=== PATIENT | male | born 1965 | race African-American/Black ===

== ENCOUNTER 2016-11-09 12:38 | Emergency (ER) | payer MEDICAID, OTHER ==
[~2016-11-09] VITALS: Ht 180.3 cm; Wt 108.9 kg
--- NOTE | 2016-11-09 12:40 | NUR ---
pt ambulatory to er bed 12. c/o auditory hallucination. c/o si plan is to overdose. hearing demonic voices. telling him to drink. pt is aao, verbally responsive. awaiting md murphy.
--- NOTE | 2016-11-09 13:06 | NUR ---
gloria whiting can worker at bedside for eval.
[2016-11-09 13:26] LABS: BASOPHILS # (AUTO) 0.1 /CMM (0.0-0.2); BASOPHILS % (AUTO) 1.9 % (0.0-2.0); EOSINOPHILS # (AUTO) 0.2 /CMM (0.0-0.7); EOSINOPHILS % (AUTO) 2.3 % (0.0-6.0); HEMATOCRIT 46 % (39-51); HEMOGLOBIN 14.6 g/dL (13.5-17.5); LYMPHOCYTES # (AUTO) 2.3 /CMM (0.8-4.8); LYMPHOCYTES % (AUTO) 29.4 % (20.0-44.0); MEAN CORPUSCULAR HEMOGLOBIN 26 PG (26.0-33.0); MEAN CORPUSCULAR HGB CONC 32 g/dl (31.0-36.0); MEAN CORPUSCULAR VOLUME 83 fL (80-96); MONOCYTES # (AUTO) 0.9 /CMM (0.1-1.30); MONOCYTES % (AUTO) 11.9 % (2.0-12.0); NEUTROPHILS # (AUTO) 4.3 /CMM (1.8-8.9); NEUTROPHILS % (AUTO) 54.5 % (43.0-81.0); PLATELET COUNT (AUTO) 205 /CMM (150-450); RDW COEFFICIENT OF VARIATION 13.2 (11.5-15.0); RED BLOOD CELL COUNT(AUTO) 5.57 MIL/uL (4.5-6.0); WHITE BLOOD COUNT (AUTO) 7.8 K/uL (4.3-11.0)
[2016-11-09] MEDS ORDERED: OLANZAPINE 5 MG TABLET ONE (13:30)
[2016-11-09] MEDS ORDERED: OLANZAPINE 5 MG TABLET PO ONE (13:30)
[2016-11-09 13:35] LABS: CARBON DIOXIDE 26 mmol/L (21-32); CHLORIDE 109 mmol/L (98-107); CREATININE 1.3 mg/dL (0.6-1.3); GLUCOSE 86 mg/dL (74-106); POTASSIUM 4.4 mmol/L (3.5-5.1); SODIUM SERUM 145 mmol/L (136-145); UREA NITROGEN, BLOOD 16 mg/dL (7-18)
[2016-11-09 13:39] LABS: APPEARANCE,URINE Clear (CLEAR); BILIRUBIN,URINE SMALL (NEGATIVE); BLOOD, URINE Negative Ery/uL (NEGATIVE); COLOR,URINE Yellow (YELLOW); KETONES,URINE Trace (NEGATIVE); LEUKOCYTE ESTERASE ,URINE Negative (NEGATIVE); NITRITE, URINE Negative (NEGATIVE); PH,URINE 5.5 (5.0-8.0); PROTEIN,URINE 30 mg/dl (NEGATIVE); UGLUCOSE Negative (NEGATIVE); UROBILINOGEN,URINE 0.2 EU/dL (0.2)
[2016-11-09 13:51] LABS: ALANINE AMINOTRANSFERASE 41 U/L (12-78); ALBUMIN 3.9 g/dL (3.4-5.0); ALCOHOL, BLOOD < 3 mg/dL (0-0); ALKALINE PHOSPHATASE 105 U/L (46-116); ASPARTATE AMINOTRANSFERASE 32 U/L (15-37); BILIRUBIN,DIRECT 0.1 mg/dL (0.0-0.2); BILIRUBIN,TOTAL 0.3 mg/dL (0.2-1.0); TOTAL PROTEIN, SERUM 7.3 g/dL (6.4-8.2)
[2016-11-09 13:52] LABS: ACETAMINOPHEN 0 ug/ml (10-30); SALICYLATE 1.9 mg/dL (2.8-20.0)
[2016-11-09 13:56] LABS: BACTERIA,URINE Rare /HPF (None Seen); RBC,URINE 0-2 /HPF (0-2); SQUAMOUS EPITHELIAL CELL,UR Few /HPF (None Seen); WBC,URINE 0-2 /HPF (0-3)
--- NOTE | 2016-11-09 15:18 | NUR ---
la rn at bedside for psych eval.
[2016-11-09 20:50] VITALS: BP 142/76
--- NOTE | 2016-11-09 21:03 | NUR ---
report given to nima. pt awaiting transfer..
--- NOTE | 2016-11-09 21:06 | NUR ---
DR BAUER ACCEPTING PSYCHIATRIST
--- NOTE | 2016-11-09 21:09 | NUR ---
CALLED [facility] FOR BLS TRANSPORT BACK TO [facility]. ETA 30 MINUTES
== END 2016-11-09 21:40 ==
LOC: ER 12:45
DX: F29 Unspecified psychosis not due to a substance or known physiological condition (principal); R45.851 Suicidal ideations; F31.9 Bipolar disorder, unspecified; F20.9 Schizophrenia, unspecified; Z59.0 Homelessness
CPT/HCPCS: 36415; 80048-TC; 80076-TC; 80305; 81000-TC; 85025-TC; A4606; G0480; Z7610

== ENCOUNTER 2019-06-10 01:33 | Emergency (ER) | payer MEDICAID ==
[~2019-06-10] VITALS: Ht 180.3 cm; Wt 110.2 kg
--- NOTE | 2019-06-10 02:17 | NUR ---
BIBS. TO ER BED 15. AAOX4. NO RESP DISTRESS NOTED, BREATHING EVEN AND UNLABORED. AMBULATORY. CAME IN FOR SUICIDAL IDEATION W/ PLAN TO OVERDOSE WITH MEDS. PT STATES THAT HE HAS BEEN FEELING DEPRESSED. DENIES HI . DENIES HALLUCINATIONS. PT STRIPPED OFF CLOTHINGS AND BELONGINGS AND KEOT IN LOCKER LOCATED IN UTILITY ROOM. PT GOWN AND VISUALLY INSPECTED BODY FOR CONTRABANDS. MD WAS AT BEDSIDE FOR EVAL. 1:1 SITTER AT BEDSIDE.
[2019-06-10 02:18] LABS: BASOPHILS % (AUTO) 0.5 % (0.0-2.0); HEMATOCRIT 43 % (39-51); LYMPHOCYTES # (AUTO) 2.2 /CMM (0.8-4.8); LYMPHOCYTES % (AUTO) 30.9 % (20.0-44.0); MEAN CORPUSCULAR HGB CONC 33 g/dl (31.0-36.0); MEAN CORPUSCULAR VOLUME 82 fL (80-96); MONOCYTES # (AUTO) 0.9 /CMM (0.1-1.30); NEUTROPHILS # (AUTO) 3.9 /CMM (1.8-8.9); NEUTROPHILS % (AUTO) 53.6 % (43.0-81.0); PLATELET COUNT (AUTO) 220 /CMM (150-450); RED BLOOD CELL COUNT(AUTO) 5.26 MIL/uL (4.5-6.0); WHITE BLOOD COUNT (AUTO) 7.2 K/uL (4.3-11.0)
[2019-06-10 02:23] LABS: APPEARANCE,URINE CLEAR (CLEAR); BILIRUBIN,URINE SMALL (NEGATIVE); BLOOD, URINE NEGATIVE Ery/uL (NEGATIVE); COLOR,URINE YELLOW (YELLOW); KETONES,URINE NEGATIVE (NEGATIVE); LEUKOCYTE ESTERASE ,URINE NEGATIVE (NEGATIVE); NITRITE, URINE POSITIVE (NEGATIVE); PROTEIN,URINE TRACE mg/dl (NEGATIVE); UGLUCOSE NEGATIVE (NEGATIVE); UROBILINOGEN,URINE 0.2 EU/dL (0.2)
[2019-06-10 02:54] LABS: BACTERIA,URINE Few /HPF (None Seen); MUCUS,URINE Moderate /LPF (None Seen); SQUAMOUS EPITHELIAL CELL,UR Rare /HPF (None Seen)
[2019-06-10 03:03] LABS: CARBON DIOXIDE 29 mmol/L (21-32); CHLORIDE 101 mmol/L (98-107); GLUCOSE 87 mg/dL (74-106); POTASSIUM 3.4 mmol/L (3.5-5.1); SODIUM SERUM 141 mmol/L (136-145); UREA NITROGEN, BLOOD 19 mg/dL (7-18)
[2019-06-10 03:04] LABS: ACETAMINOPHEN 0 ug/ml (10-30); ALANINE AMINOTRANSFERASE 40 U/L (12-78); ALBUMIN 4.1 g/dL (3.4-5.0); ALKALINE PHOSPHATASE 100 U/L (46-116); ASPARTATE AMINOTRANSFERASE 32 U/L (15-37); BILIRUBIN,DIRECT 0.1 mg/dL (0.0-0.2); BILIRUBIN,TOTAL 0.4 mg/dL (0.2-1.0); CREATININE 1.4 mg/dL (0.6-1.3); TOTAL PROTEIN, SERUM 7.7 g/dL (6.4-8.2)
[2019-06-10 03:30] LABS: ALCOHOL, BLOOD < 3 mg/dL (0-0); SALICYLATE 2.7 mg/dL (2.8-20.0)
--- NOTE | 2019-06-10 06:15 | NUR ---
PT IN BED SLEEPING. NAD NOTED
--- NOTE | 2019-06-10 06:32 | NUR ---
PT ACCEPTED AT [facility] ACCEPTING MD ROSALES PHONE # FOR REPORT EXT [phone] ROOM NUMBER WILL BE PROVIDED DURING NURSE TO NURSE REPORT.
--- NOTE | 2019-06-10 06:41 | NUR ---
SPOKE W/ FILI FROM [facility]: ETA: [phone] TRIP #: [id number]
--- NOTE | 2019-06-10 06:45 | NUR ---
NEW ETA FOR TRANSPORT [phone]
--- NOTE | 2019-06-10 06:49 | NUR ---
CALLED [facility] FOR REPORT BUT UNABLE TO GIVE BECAUSE RECORD FROM INTAKE IS NOT SENT TO UNIT YET. WILL CALL BACK AGAIN
--- NOTE | 2019-06-10 06:51 | NUR ---
CALLED [facility]. [facility] WILL CALL BACK.
[2019-06-10 07:30] VITALS: BP 132/82
--- NOTE | 2019-06-10 07:49 | NUR ---
PT VERBALIZED THAT HE DOES NOT WANT TO GO TO [facility] AND WANT TO JUST BE DISCHARGED AND VERBALIZE THAT HE IS NO LONGER SUICIDAL. MD MADE AWARE AND CLEARED FOR DC
--- NOTE | 2019-06-10 07:51 | NUR ---
Patient discharged to home in stable condition. Written and verbal after care instructions given. Patient verbalizes understanding of instruction. Pt ambulatory with a steady gait. All belongings returned to pt.
== END 2019-06-10 08:04 | disposition home or self-care (01) ==
LOC: ER 01:36
DX: F32.9 Major depressive disorder, single episode, unspecified (principal); R45.851 Suicidal ideations; F20.9 Schizophrenia, unspecified; Z59.0 Homelessness
CPT/HCPCS: 36415; 80048; 80076; 80305; 80307; 80329; 81001; 85025; 87086; 99283; G0480; 81000-TC

== ENCOUNTER 2019-08-02 08:27 | Emergency (ER) | payer MEDICAID ==
[~2019-08-02] VITALS: Ht 180.3 cm; Wt 86.2 kg
--- NOTE | 2019-08-02 08:35 | NUR ---
dr malone at bedside. pt now c/o SI w/ plan to OD on pills.
--- NOTE | 2019-08-02 08:36 | NUR ---
pt self presents to ed. ambulatory to er bed 12 requesting for medication refill for psych medication. but upon ED provider jeffrey pt started complaining that he is hearing voices. pt cooperative to staff. stable vitals. sitter at bedside.
--- NOTE | 2019-08-02 08:50 | NUR ---
clinical lab specialist at bedside for blood draw.
[2019-08-02 09:05] LABS: BASOPHILS % (AUTO) 0.5 % (0.0-2.0); EOSINOPHILS % (AUTO) 0.9 % (0.0-6.0); HEMATOCRIT 41 % (39-51); HEMOGLOBIN 13.1 g/dL (13.5-17.5); LYMPHOCYTES # (AUTO) 2.1 /CMM (0.8-4.8); MEAN CORPUSCULAR HGB CONC 32 g/dl (31.0-36.0); MEAN CORPUSCULAR VOLUME 82 fL (80-96); MONOCYTES # (AUTO) 0.7 /CMM (0.1-1.30); MONOCYTES % (AUTO) 9.9 % (2.0-12.0); NEUTROPHILS # (AUTO) 4.3 /CMM (1.8-8.9); NEUTROPHILS % (AUTO) 59.7 % (43.0-81.0); PLATELET COUNT (AUTO) 201 /CMM (150-450); RED BLOOD CELL COUNT(AUTO) 4.95 MIL/uL (4.5-6.0); WHITE BLOOD COUNT (AUTO) 7.2 K/uL (4.3-11.0)
[2019-08-02 09:13] LABS: CALCIUM, SERUM 8.9 mg/dL (8.5-10.1); CARBON DIOXIDE 29 mmol/L (21-32); CHLORIDE 105 mmol/L (98-107); CREATININE 1.1 mg/dL (0.6-1.3); GLUCOSE 87 mg/dL (74-106); POTASSIUM 3.7 mmol/L (3.5-5.1); SODIUM SERUM 140 mmol/L (136-145); UREA NITROGEN, BLOOD 16 mg/dL (7-18)
[2019-08-02 09:17] LABS: APPEARANCE,URINE Clear (CLEAR); BILIRUBIN,URINE Negative (NEGATIVE); BLOOD, URINE Negative Ery/uL (NEGATIVE); COLOR,URINE Yellow (YELLOW); KETONES,URINE Negative (NEGATIVE); LEUKOCYTE ESTERASE ,URINE Negative (NEGATIVE); NITRITE, URINE Negative (NEGATIVE); PROTEIN,URINE Negative (NEGATIVE); UGLUCOSE Negative (NEGATIVE); UROBILINOGEN,URINE 0.2 EU/dL (0.2)
[2019-08-02 09:23] LABS: ALANINE AMINOTRANSFERASE 26 U/L (12-78); ALBUMIN 3.9 g/dL (3.4-5.0); ALKALINE PHOSPHATASE 90 U/L (46-116); ASPARTATE AMINOTRANSFERASE 25 U/L (15-37); BILIRUBIN,DIRECT 0.1 mg/dL (0.0-0.2); BILIRUBIN,TOTAL 0.7 mg/dL (0.2-1.0); SALICYLATE 4.6 mg/dL (2.8-20.0); TOTAL PROTEIN, SERUM 7.3 g/dL (6.4-8.2)
[2019-08-02 09:30] LABS: ACETAMINOPHEN 0 ug/ml (10-30); ALCOHOL, BLOOD < 3 mg/dL (0-0)
--- NOTE | 2019-08-02 10:47 | NUR ---
RIDING TEACHER contacted Ez at [facility] to initiate voluntary psychiatric admission. Per Ez, they will have a bed for the pt. Clinicals faxed to [facility] intake for voluntary psychiatric admission.
--- NOTE | 2019-08-02 11:44 | NUR ---
EMANATIONS ANALYSIS TECHNICIAN received a call from [facility] at [facility] intake informing SW pt has been accepted by Dr. Yan /Dr. Fiore for Miles Leach. Report to JAMEY Acosta . EMANATIONS ANALYSIS TECHNICIAN updated ED with aforementioned information.
--- NOTE | 2019-08-02 11:46 | NUR ---
[facility] TO [facility] NUM[facility] FOR REPORT [phone] YOLETTE MEEK/MARIBEL
--- NOTE | 2019-08-02 11:57 | NUR ---
CALLED [facility]#[phone]
--- NOTE | 2019-08-02 12:02 | NUR ---
ETA [phone] [facility]
--- NOTE | 2019-08-02 12:23 | NUR ---
REPORT GIVEN TO [facility] PICK[facility]. AWAITING PT TRANSPORT.
[2019-08-02 14:25] VITALS: BP 142/61
--- NOTE | 2019-08-02 14:26 | NUR ---
TRANSPORTED TO [facility] IN STABLE CONDITION.
== END 2019-08-02 14:27 ==
LOC: ER 08:30
DX: F28 Other psychotic disorder not due to a substance or known physiological condition (principal); R45.851 Suicidal ideations; F32.9 Major depressive disorder, single episode, unspecified; Z59.0 Homelessness
CPT/HCPCS: 36415; 80048; 80076; 80305; 80307; 80329; 81001; 85025; 99285; G0480; 81000-TC

== ENCOUNTER 2019-08-13 19:35 | Emergency (ER) | payer MEDICAID ==
[~2019-08-13] VITALS: Ht 180.3 cm; Wt 111.6 kg
--- NOTE | 2019-08-13 22:20 | NUR ---
PT BIBSELF C/O SUICIDAL IDEATION WITH PLAN TO OVERDOSE ON PILLS, PT IS AAOX4, NOT IN RESPIRATORY DISTRESS, V/S STABLE, SUICIDAL PROTOCOL INITIATED, KEPT RESTED AND COMFORTABLE, WILL CONTINUE TO MONITOR.
--- NOTE | 2019-08-13 22:25 | NUR ---
URINE SPECIMEN COLLECTED AND SENT TO LAB.
--- NOTE | 2019-08-13 23:15 | NUR ---
SEEN AND EXAMINED BY .
--- NOTE | 2019-08-13 23:20 | NUR ---
ER PHLEB AT BEDSIDE FOR BLOOD DRAW.
[2019-08-13 23:41] LABS: CALCIUM, SERUM 8.6 mg/dL (8.5-10.1); CARBON DIOXIDE 27 mmol/L (21-32); CHLORIDE 107 mmol/L (98-107); GLUCOSE 88 mg/dL (74-106); POTASSIUM 3.8 mmol/L (3.5-5.1); SODIUM SERUM 142 mmol/L (136-145); UREA NITROGEN, BLOOD 18 mg/dL (7-18)
[2019-08-13 23:44] LABS: APPEARANCE,URINE Clear (CLEAR); BILIRUBIN,URINE Negative (NEGATIVE); BLOOD, URINE Negative Ery/uL (NEGATIVE); COLOR,URINE Yellow (YELLOW); KETONES,URINE Negative (NEGATIVE); LEUKOCYTE ESTERASE ,URINE Negative (NEGATIVE); NITRITE, URINE Negative (NEGATIVE); PROTEIN,URINE Negative (NEGATIVE); UGLUCOSE Negative (NEGATIVE); UROBILINOGEN,URINE 0.2 EU/dL (0.2)
[2019-08-13 23:47] LABS: ALANINE AMINOTRANSFERASE 30 U/L (12-78); ALBUMIN 3.7 g/dL (3.4-5.0); ALCOHOL, BLOOD < 3 mg/dL (0-0); ALKALINE PHOSPHATASE 107 U/L (46-116); ASPARTATE AMINOTRANSFERASE 23 U/L (15-37); BASOPHILS % (AUTO) 0.6 % (0.0-2.0); BILIRUBIN,TOTAL 0.2 mg/dL (0.2-1.0); HEMATOCRIT 38 % (39-51); HEMOGLOBIN 12.5 g/dL (13.5-17.5); LYMPHOCYTES # (AUTO) 1.8 /CMM (0.8-4.8); LYMPHOCYTES % (AUTO) 34.1 % (20.0-44.0); MEAN CORPUSCULAR HGB CONC 33 g/dl (31.0-36.0); MEAN CORPUSCULAR VOLUME 82 fL (80-96); MONOCYTES # (AUTO) 0.7 /CMM (0.1-1.30); MONOCYTES % (AUTO) 12.3 % (2.0-12.0); NEUTROPHILS # (AUTO) 2.8 /CMM (1.8-8.9); PLATELET COUNT (AUTO) 171 /CMM (150-450); RED BLOOD CELL COUNT(AUTO) 4.65 MIL/uL (4.5-6.0); TOTAL PROTEIN, SERUM 6.8 g/dL (6.4-8.2); WHITE BLOOD COUNT (AUTO) 5.4 K/uL (4.3-11.0)
[2019-08-13 23:51] LABS: SALICYLATE 1.8 mg/dL (2.8-20.0)
[2019-08-14 00:01] VITALS: BP 138/91
[2019-08-14 00:14] LABS: ACETAMINOPHEN 0 ug/ml (10-30)
--- NOTE | 2019-08-14 01:20 | NUR ---
PT VERBALIZED HE IS NOT SUICIDAL ANYMORE AND WANTS TO BE DISCHARGED. BECOME AGGRESSIVE AND UNCOOPERATIVE TOWARDS STAFF, MD AWARE, ESCORTED BY SECURITY OUTSIDE.
--- NOTE | 2019-08-14 01:24 | NUR ---
Patient given written and verbal discharge instructions. Patient verbalizes understanding of instructions. Patient is ambulatory with steady gait. Refuses offer of correction placement. Patient given list of available shelters in surrounding area.
== END 2019-08-14 01:28 | disposition home or self-care (01) ==
LOC: ER 19:41
DX: F32.9 Major depressive disorder, single episode, unspecified (principal); Z59.0 Homelessness; Z76.5 Malingerer [conscious simulation]; F20.9 Schizophrenia, unspecified
CPT/HCPCS: 36415; 80048; 80076; 80305; 80307; 80329; 81001; 85025; 99283; G0480; 81000-TC

== ENCOUNTER 2019-10-02 15:25 | Emergency (ER) | payer MEDICAID ==
[~2019-10-02] VITALS: Ht 175.3 cm; Wt 106.1 kg
--- NOTE | 2019-10-02 15:31 | NUR ---
CAME IN FOR SI, "I'm Hearing voices/Suicidal ideation", HOMELESS, TO ER BED 9, HOOKED TO MONITOR, CHANGED TO HOSP GOWN, WARM BLANKET PROVIDED, DR KHAN AT BEDSIDE
--- NOTE | 2019-10-02 15:37 | NUR ---
URINE SPECIMEN COLLECTED AND SENT TO LAB.
--- NOTE | 2019-10-02 15:39 | NUR ---
SECURITY AT BEDSIDE FOR WANDING OF PATIENT AND BELONGINGS. BELONGINGS PLACED IN PATIENT BELONGINGS LOCKER.
[2019-10-02 15:55] LABS: BASOPHILS % (AUTO) 0.7 % (0.0-2.0); EOSINOPHILS % (AUTO) 1.3 % (0.0-6.0); HEMATOCRIT 44 % (39-51); HEMOGLOBIN 14.1 g/dL (13.5-17.5); LYMPHOCYTES # (AUTO) 1.3 /CMM (0.8-4.8); LYMPHOCYTES % (AUTO) 25.9 % (20.0-44.0); MEAN CORPUSCULAR HGB CONC 32 g/dl (31.0-36.0); MEAN CORPUSCULAR VOLUME 83 fL (80-96); MONOCYTES # (AUTO) 0.4 /CMM (0.1-1.30); MONOCYTES % (AUTO) 7.5 % (2.0-12.0); NEUTROPHILS # (AUTO) 3.3 /CMM (1.8-8.9); NEUTROPHILS % (AUTO) 64.6 % (43.0-81.0); PLATELET COUNT (AUTO) 182 /CMM (150-450); RED BLOOD CELL COUNT(AUTO) 5.24 MIL/uL (4.5-6.0); WHITE BLOOD COUNT (AUTO) 5.2 K/uL (4.3-11.0)
[2019-10-02 15:57] LABS: APPEARANCE,URINE Clear (CLEAR); BILIRUBIN,URINE Negative (NEGATIVE); BLOOD, URINE Negative Ery/uL (NEGATIVE); COLOR,URINE Yellow (YELLOW); KETONES,URINE Trace (NEGATIVE); LEUKOCYTE ESTERASE ,URINE Negative (NEGATIVE); NITRITE, URINE Negative (NEGATIVE); PH,URINE 5.5 (5.0-8.0); PROTEIN,URINE Negative (NEGATIVE); UGLUCOSE Negative (NEGATIVE); UROBILINOGEN,URINE 0.2 EU/dL (0.2)
[2019-10-02 16:09] LABS: ALANINE AMINOTRANSFERASE 36 U/L (12-78); ALBUMIN 3.8 g/dL (3.4-5.0); ALCOHOL, BLOOD < 3 mg/dL (0-0); ALKALINE PHOSPHATASE 94 U/L (46-116); ASPARTATE AMINOTRANSFERASE 29 U/L (15-37); BILIRUBIN,DIRECT 0.1 mg/dL (0.0-0.2); BILIRUBIN,TOTAL 0.2 mg/dL (0.2-1.0); CALCIUM, SERUM 9.1 mg/dL (8.5-10.1); CARBON DIOXIDE 32 mmol/L (21-32); CHLORIDE 108 mmol/L (98-107); CREATININE 1.2 mg/dL (0.6-1.3); GLUCOSE 76 mg/dL (74-106); POTASSIUM 3.3 mmol/L (3.5-5.1); SALICYLATE 3.8 mg/dL (2.8-20.0); SODIUM SERUM 144 mmol/L (136-145); UREA NITROGEN, BLOOD 17 mg/dL (7-18)
[2019-10-02 16:22] LABS: ACETAMINOPHEN 0 ug/ml (10-30)
[2019-10-02 16:36] LABS: BACTERIA,URINE Rare /HPF (None Seen); RBC,URINE 0-2 /HPF (0-2); SQUAMOUS EPITHELIAL CELL,UR 0-2 /HPF (None Seen)
--- NOTE | 2019-10-02 16:46 | NUR ---
PT STATED HE IS NOT SUICIDAL ANYMORE AND WANTS TO BE DISCHARGE. MD AWARE.
--- NOTE | 2019-10-02 16:57 | NUR ---
Patient given written and verbal discharge instructions. Patient verbalizes understanding of instructions. Patient is ambulatory with steady gait. Refuses offer of snf placement. Patient given list of available shelters in surrounding area.
[2019-10-02 16:59] VITALS: BP 142/79
== END 2019-10-02 16:59 | disposition home or self-care (01) ==
LOC: ER 15:28
DX: F31.9 Bipolar disorder, unspecified (principal); F20.9 Schizophrenia, unspecified; R45.851 Suicidal ideations; Z59.0 Homelessness
CPT/HCPCS: 36415; 80048; 80076; 80305; 80307; 80329; 81001; 85025; 99284; G0480; 81000-TC